=== PATIENT | female | born 1975 | race Caucasian/White ===

== ENCOUNTER 2016-10-30 11:08 | Emergency (ER) | payer BC ==
[2016-10-30 11:26] VITALS: BP 130/74; PULSE 100; RESP 18; TEMP 98.8; O2SAT 95
--- NOTE | 2016-10-30 11:43 | UCPHY ---
H & P Time Seen by Provider: 10/30/16 11:20 Patient Type: New HPI/ROS: 41-year-old female presents complaining of several days of nasal congestion, sinus congestion ear fullness itching in her right ear some mild cough. She states she has had similar illnesses last few years in often the move into her chest and she wanted to have this checked prior to that happening this year. She is also scheduled to travel to [place] tomorrow and is concerned about flying. Review of systems As per HPI-nasal congestion, sinus congestion, ear fullness in itching General no fever no chills no weakness HEENT no eye pain no eye discharge. No eye redness, no sore throat Respiratory positive cough, no shortness of breath Cardiac no chest pain, no peripheral edema GI no abdominal pain, no diarrhea, no constipation, no nausea, no vomiting no flank pain, no hematuria, no dysuria Musculoskeletal no myalgias, no joint pain Heme no easy bruising, no easy bleeding Endo no polyuria, no polydipsia Skin no rashes, no pruritus Neuro no syncope, no dizziness, no headaches Psych is no suicidal ideation, no homicidal ideation Past Medical/Surgical History: Noncontributory Social History: Alcohol socially no drugs Smoking Status: Never smoked Physical Exam: Alert and oriented nontoxic appearance, no acute distress afebrile Atraumatic normocephalic Extraocular muscles intact, anicteric Nares mild yellowish discharge, nasal turbinates erythema and swelling bilaterally Right tympanic membrane erythematous, right external canal erythematous mildly swollen no exudate Oropharynx mild erythema no tonsillar swelling no exudate no uvular deviation, tolerating own secretions Neck supple no lymphadenopathy Lungs clear to auscultation bilaterally Heart regular rate and rhythm Abdomen normoactive bowel sounds soft nontender Extremities no cyanosis clubbing or edema Skin no rash Constitutional: Initial Vital Signs Temperature (C) 37.1 C 10/30/16 11:23 Heart Rate 100 10/30/16 11:23 Respiratory Rate 18 10/30/16 11:23 Blood Pressure 130/74 H 10/30/16 11:23 O2 Sat (%) 95 10/30/16 11:23 O2 Delivery Mode Room Air Allergies/Adverse Reactions: latex Allergy (Verified 10/30/16 12:02) Home Medications: Medication Instructions Recorded Amoxicillin/Clavulanate Pot 875 mg PO BID #20 tab 10/30/16 [Augmentin 875 MG TAB (*)] Bc Pills 10/30/16 Neomy Sulf/Polymyx B Sulf/Hc 4 drops OT TID #0 solution 10/30/16 [Cortisporin Otic (*)] Medical Decision Making ED Course/Re-evaluation: Patient seen and evaluated for nasal congestion sinus congestion ear fullness ear itching mild ear discomfort as well as slight cough. Differential diagnosis Sinusitis, URI, bronchitis, pharyngitis, influenza, otitis media, pneumonia Influenza negative Physical exam significant for right TM erythema fluid behind right TM as well as significant nasal congestion, otherwise exam within normal limits No respiratory distress, no rhonchi Impression Otitis media right Otitis externa right Sinusitis Plan Augmentin Cortisporin otic Decongestant Nasal steroid Follow up with primary care physician Rest, drink lots of liquids acetaminophen or ibuprofen as needed for pain or fever - Data Points Laboratory Results: 10/30/16 11:40 Influenza Typ A,B (DFA) NEGATIVE FOR FLU (NEGATIVE) Departure - Departure Disposition: Home, Routine, Self-Care Clinical Impression: Sinusitis, Otitis media, right, Otitis externa Condition: Good Instructions: Sinusitis (ED), Otitis Media (ED), Otitis Externa (ED) Referrals: OUT OF STATE,. [Primary Care Provider] - As per Instructions Prescriptions: Amoxicillin/Clavulanate Pot [Augmentin 875 MG TAB (*)] 875 mg PO BID #20 tab Neomy Sulf/Polymyx B Sulf/Hc [Cortisporin Otic (*)] 4 drops OT TID #0 solution - PQRS PQRS Measurement: na
== END 2016-10-30 12:13 | disposition home or self-care (01) ==
LOC: CED 11:08
DX: J32.9 Chronic sinusitis, unspecified (principal); H66.91 Otitis media, unspecified, right ear; H60.91 Unspecified otitis externa, right ear
CPT/HCPCS: 87400-PO; 99203-PO; G0463-PO